=== PATIENT | female | born 1965 | race African-American/Black ===

== ENCOUNTER 2017-02-12 17:30 | Emergency (ER) | payer SELFPAY ==
[2017-02-12] MEDS ORDERED: Acetaminophen 500 MG TAB ONE (18:32)
[2017-02-12] MEDS ORDERED: Ibuprofen 800 MG TAB ONE (19:42)
== END 2017-02-12 19:45 | disposition home or self-care (01) ==
LOC: ERS 17:30
DX: J11.1 Influenza due to unidentified influenza virus with other respiratory manifestations (principal); I10 Essential (primary) hypertension; K21.9 Gastro-esophageal reflux disease without esophagitis; D64.9 Anemia, unspecified; F41.9 Anxiety disorder, unspecified; F31.9 Bipolar disorder, unspecified; F20.9 Schizophrenia, unspecified; Z79.82 Long term (current) use of aspirin; Z79.899 Other long term (current) drug therapy
CPT/HCPCS: 99283

== ENCOUNTER 2017-02-19 09:12 | Emergency (ER) | payer SELFPAY ==
[2017-02-19 10:33] LABS: Bilirubin Negative (Negative); Blood, Urine Large (Negative); Clarity TURBID (Clear); Glucose, Urine (Dipstick) Negative (Negative); Leukocyte Large (Negative); Nitrite Negative (Negative); Protein, Urine (Dipstick) 300 mg/dL (Neg-Trace); Urobilinogen 0.2 mg/dL (0.2-1.0)
[2017-02-19 10:34] LABS: Bacteria/HPF 2+ HPF (None Seen); Hyaline Casts/LPF 4-6 HYALINE CAST LPF (0-3 Hyaline); Pathc Cast-AUWi Flag 0.82 (0-2.49)
[2017-02-19 11:03] LABS: Yeast-AUWi Flag 283.4 (0-25.0)
[2017-02-19 11:04] LABS: Yeast-All Forms None Seen HPF (None Seen)
== END 2017-02-19 11:13 | disposition home or self-care (01) ==
LOC: ERS 09:12
DX: N39.0 Urinary tract infection, site not specified (principal); K21.9 Gastro-esophageal reflux disease without esophagitis; D64.9 Anemia, unspecified; I10 Essential (primary) hypertension; F32.9 Major depressive disorder, single episode, unspecified; F41.9 Anxiety disorder, unspecified; Z79.899 Other long term (current) drug therapy; Z79.82 Long term (current) use of aspirin
CPT/HCPCS: 81003; 81015; 99283

== ENCOUNTER 2017-08-16 13:42 | Observation (INO) | payer SELFPAY ==
--- NOTE | 2017-08-16 14:03 | RAD ---
CHEST ONE VIEW: History: Dyspnea. Chest pain. Comparison: 10-07-16 FINDINGS: Cardiac silhouette magnified and upper limits of normal. Pulmonary vasculature also upper limits of n ormal. Mediastinum is midline. No lobar consolidation or evidence of pneumothorax. classroom monitor le ads overlie the chest. IMPRESSION: No active cardiopulmonary abnormalities are demonstrated. POS: H
[2017-08-16 14:15] LABS: #Eosinphils 0.2 thou/uL (0.0-0.7); #Lymphocytes 1.7 thou/uL (1.20-3.40); #Monocytes 0.3 thou/uL (0.11-0.59); #Neutrophils 4.2 thou/uL (1.40-6.50); %Basophils 0.4 % (0.0-1.0); %Eosinophils 2.4 % (0.0-10.0); %Lymphocytes 27.1 % (21.0-51.0); %Monocytes 4.4 % (0.0-10.0); %Neutrophils 65.7 % (42.0-75.0); Hemoglobin 6.8 g/dL (12.0-16.0); Mean Corpuscular HGB CONC 27.2 g/dL (32.0-36.0); Mean Corpuscular Hemoglobin 17.4 pg (27.0-31.0); Mean Corpuscular Volume 64.2 fL (78.0-98.0); Mean Platelet Volume 11.2 fL (7.4-10.4); Platelet Count 425 thou/uL (130-400); Red Blood Cell (RBC) Count 3.87 mill/uL (4.20-5.40); White Blood Cell (WBC) Count 6.4 thou/uL (4.8-10.8)
[2017-08-16 14:32] LABS: Anisocytosis SLIGHT = 6-15 cells (100X) (0-5/hpf); Hypochromia SLIGHT = 6-15 cells (100X) (0-5/hpf); Large Platelets SLIGHT; MDiff Complete? YES; Microcytosis SLIGHT = 6-15 cells (100X) (0-5/hpf); Ovalocytes SLIGHT = 2-5 cells (100X) (0-1/hpf); PLT Morphology Comment Appears Increased; Poikilocytosis SLIGHT = 6-15 cells (100X) (0-5/hpf); Polychromasia SLIGHT = 2-3 cells (100X) (0-2/hpf); Schistocytes SLIGHT = 2-5 cells (100X) (0-1/hpf); Target Cells SLIGHT = 2-5 cells (100X) (0-1/hpf); Tear Drops SLIGHT = 2-5 cells (100X) (0-1/hpf)
[2017-08-16 14:33] LABS: ALT (SGPT) Less than 7 U/L (8-55); AST (SGOT) 11 U/L (5-34); Albumin 3.8 g/dL (3.5-5.0); Alkaline Phosphatase 63 U/L (40-150); Anion Gap 8 mmol/L (10-20); BUN (Urea Nitrogen) 8 mg/dL (9.8-20.1); Bilirubin, Total 0.3 mg/dL (0.2-1.2); Calc. Creatinine Clearance 0 mL/min (70-130); Carbon Dioxide 27 mmol/L (22-29); Chloride 106 mmol/L (98-107); Estimated GFR-MDRD Greater than 90; Globulin 3.3 g/dL (2.4-3.5); Glucose 112 mg/dL (70-105); Potassium 3.5 mmol/L (3.5-5.1); Protein, Total 7.1 g/dL (6.0-8.3); Sodium 137 mmol/L (136-145)
[2017-08-16 14:38] LABS: CKMB 2.6 ng/mL (0-6.6); Troponin I Less than 0.010 ng/mL (< 0.028)
[2017-08-16 14:40] LABS: CK (CPK) 199 U/L (29-168); Lipase 76 U/L (8-78)
[2017-08-16] MEDS ORDERED: diphenhydrAMINE 50 MG/ML VIAL ONE (14:44)
[2017-08-16] MEDS ORDERED: Metoclopramide HCl 10 MG/2 ML VIAL ONE (14:44)
--- NOTE | 2017-08-16 15:54 | ULT ---
PELVIC SONOGRAM TRANSABDOMINAL IMAGING WITH DUPLEX EVALUATION: HISTORY: Vaginal bleeding. Pelvic pain. FINDINGS: Urinary bladder is incompletely distended. Uterus has a homogeneous echotexture and is 11.2 cm. End ometrium is 0.7 cm and contains a tiny nonspecific echogenic focus. No free fluid within the pelvis. The right ovary is 3.4 cm and the left 3.1 cm. Each has a normal s onographic appearance and demonstrates good color and spectral Doppler flow. IMPRESSION: Normal pelvic sonogram. POS: [facility]
[2017-08-16 17:07] LABS: Bilirubin Negative (Negative); Blood, Urine Large (Negative); Clarity CLOUDY (Clear); Glucose, Urine (Dipstick) Negative (Negative); Leukocyte Large (Negative); Nitrite Negative (Negative); Protein, Urine (Dipstick) 100 mg/dL (Neg-Trace); Specific Gravity, Urine 1.008 (1.002-1.036); Urobilinogen 0.2 mg/dL (0.2-1.0); pH, Urine 6.5 (5.0-9.0)
[2017-08-16 17:09] LABS: Bacteria/HPF None Seen HPF (None Seen); Pathc Cast-AUWi Flag 5.39 (0-2.49); Yeast-AUWi Flag 1485.2 (0-25.0)
[2017-08-16 17:37] LABS: Hyaline Casts/LPF NONE SEEN LPF (0-3 Hyaline); Other Casts/LPF None Seen LPF (0-3 Hyaline)
[2017-08-16 17:38] LABS: RBC/HPF GREATER THAN 50-TNTC HPF (0-3); Yeast-All Forms None Seen HPF (None Seen)
[2017-08-16 17:41] VITALS: BMI 45.2
[2017-08-16 17:48] LABS: Troponin I Less than 0.010 ng/mL (< 0.028)
[2017-08-16] MEDS ORDERED: Ondansetron HCl/PF 4 MG/2 ML Vial IVP PRN ×2 (18:15→18:58)
[2017-08-16] MEDS ORDERED: Sodium Chloride 0.9% 1,000 ML IV SCH (18:15)
[2017-08-16] MEDS ORDERED: Ondansetron ODT 4 MG TAB SL PRN (18:15)
[2017-08-16] MEDS ORDERED: Ondansetron ODT 8 MG TAB PO PRN (18:57)
[2017-08-16] MEDS ORDERED: cloNIDine 0.1 MG TAB PO PRN (18:57)
[2017-08-16] MEDS ORDERED: Acetaminophen/Codeine 30-300mg Tablet PO PRN (18:59)
[2017-08-16] MEDS: Acetaminophen 325 MG TAB PO PRN (19:48)
[2017-08-16 20:51] LABS: Troponin I 0.013 ng/mL (< 0.028)
[2017-08-16] MEDS: cloNIDine 0.1 MG TAB PO SCH (21:04)
[2017-08-16] MEDS: Simvastatin 20 MG TAB PO SCH (21:05)
[2017-08-16] MEDS: Cipro 250 MG TAB PO SCH (21:05)
[2017-08-16] MEDS: Metoprolol Tartrate 25 MG TAB PO SCH (21:06)
[2017-08-17] MEDS: Acetaminophen 325 MG TAB PO PRN ×5 (00:40→21:16)
--- NOTE | 2017-08-17 03:13 | HP ---
DATE OF INITIAL OBSERVATION: 08/16/2017 CHIEF COMPLAINT OF OBSERVATION: Headache and weakness with occasional chest pain/symptomatic anemia. HISTORY OF PRESENT ILLNESS: The patient is a 51-year-old female who 2 years ago came to the emergenc y room for the very same complaints of weakness and tiredness with occasional chest pain and she was admitted to the hospital for complete acute coronary syndrome workup including stress test, all of wh ich returned unremarkable. She also had a gynecology workup with Dr. Jeet Hunter for the menorrhag ia that she has had for many years. Endometrial biopsy returned no malignancy and she was supposed t o follow up as an outpatient for possible D and C, but due to insurance issues, she never did. She a lso had a complete GI workup with upper endoscopy including EGD, lower endoscopy including colonoscop y, and no disease process was found. Since that time, she has continued to have excessive menstruati on. She has been requested to take iron tablets, but has not done so, preferring to take just her me toprolol. She had seen Dr. Mota's nurse practitioner, Sis Calle over a year ago and has not come back for followup to control her blood pressure, so when she arrived at the ER, it is 161/86. She also has not been taking her simvastatin or daily aspirin. The patient's complaints initially we re weakness and tingling in her arms. The day prior to coming to the emergency room, she had an epis ode of chest pain that was squeezing in nature in substernal. There was no actual chest pain when sh e came into the emergency room, but this was listed in her history and because her hemoglobin had com e down to 6.8 and, hematocrit 24.8. It was thought that this might be symptomatic angina despite the negative cardiac workup 2 years earlier, so Dr. Ramirez was called to put the patient into the [facility] for further evaluation of the nature of her chest pain. Cardiac enzymes thus far have been negat fadumo. She does have very significant urinary tract infection and this will be treated accordingly. PAST MEDICAL HISTORY: Significant for the previous mentioned metromenorrhagia, this has been going o n for many years; hyperlipidemia; hypertension; paroxysmal supraventricular tachycardia; iron deficie ncy anemia secondary to the metromenorrhagia; extreme obesity; tobacco abuse; gastroesophageal reflux disease. PRIOR SURGICAL HISTORY: Includes the aforementioned procedures of EGD and colonoscopy done in 2016. Endometrial biopsy done during that year, she has had a cyst removed from her left breast. PSYCHOLOGICAL HISTORY: Includes anxiety and depression. SOCIAL HISTORY: She denies alcohol use. She is a previous smoker. Lives at home. ALLERGIES: Possibly to IODINE and MORPHINE. CURRENT MEDICATIONS: She is supposed to be taking metoprolol 12.5 mg b.i.d., 81 mg aspirin, simvasta tin 20 mg daily, and Feosol iron supplementation. REVIEW OF SYSTEMS: At the time of admission, it is negative for fever or chills. Eyes: Denies eye pain or blurred vision or visual changes. ENT: Denies rhinorrhea, sore throat, pain in her ears, ri nging in her ears. Respiratory: She reports some shortness of breath, but denies coughing, wheezing , or sneezing. Cardiovascular: Reports some squeezing in her chest, occasionally with exertion. De nies palpitations. Genitourinary: No pain on urination, no frequency, or blood in urine or stool. Gastrointestinal: Denies nausea, vomiting, diarrhea, or abdominal pain. Skin: No new rashes or les ions. Neurologic: Denies confusion, dizziness, but does have headaches. Hemolytic Lymph: There is no new swelling or blood clotting. Allergic/Immunologic: Denies any sneezing, itchy watery eyes. PHYSICAL EXAMINATION: At the time of admission: VITAL SIGNS: Blood pressure 161/86, pulse 71, respirations 18, temperature 98.3, O2 sat 97% on room air. Later in the emergency room, her blood pressure shot up to 180/96. GENERAL: This is a morbidly obese black female, alert, oriented, and cooperative. HEENT: Normocephalic and atraumatic. Pupils equal, round, and reactive to light. Extraocular muscl es are intact. TMs, nares, pharynx are clear. NECK: Supple, trachea midline. No mass noted. CHEST: Breath sounds clear on both sides. BREAST: Deferred. HEART: Regular rate and rhythm. No murmur. ABDOMEN: Soft, nontender, without organomegaly. GENITOURINARY: Deferred. EXTREMITIES: Without clubbing, cyanosis, or significant edema. Normal range of motion present in up per and lower extremities with 2+ pulses in her radial and dorsalis pedis bilaterally. SKIN: Without acute rashes or lesions. NEUROLOGIC: Cranial nerves are intact. Gait and cerebellar function are not tested. Sensory exam i s grossly intact. Mental status is baseline without obvious hallucinations, delusions. Thoughts are coherent, logical, and goal directed without pressured speech. LABORATORY DATA: The lab work on admission shows WBC at 6.4, hemoglobin 6.8, hematocrit 24.[address] atelets at 425,000. Her sodium is 137, potassium 3.5, chloride 106, CO2 of 27, BUN 8, creatinine 0.7 2, glucose 112, ALT less than 7. CK is 199. Troponins are negative x2. BNP 82. Lipase 76. Urinal ysis shows too numerous to count wbc's with large leukocyte esterase, nitrites negative. ASSESSMENT: 1. Symptomatic anemia. 2. Possible angina. We will look for cardiac and packed. 3. Urinary tract infection. 4. Medical noncompliance. 5. Hypertension. 6. Dyslipidemia. 7. History of tobacco abuse. PLAN: Plan will be to complete the serial cardiac enzymes, consult Cardiology. Repeat echocardiogra m last done in 2014 and do a nuclear Med stress test to clarify whether any further intervention will be necessary from a cardiac standpoint. In the meantime, pain management for her headaches and bloo d pressure control will be performed.
[2017-08-17 04:36] LABS: #Eosinphils 0.3 thou/uL (0.0-0.7); #Lymphocytes 2.4 thou/uL (1.20-3.40); #Monocytes 0.4 thou/uL (0.11-0.59); #Neutrophils 4.5 thou/uL (1.40-6.50); %Basophils 0.4 % (0.0-1.0); %Eosinophils 3.6 % (0.0-10.0); %Lymphocytes 30.8 % (21.0-51.0); %Monocytes 5.8 % (0.0-10.0); %Neutrophils 59.3 % (42.0-75.0); Hemoglobin 7.1 g/dL (12.0-16.0); Mean Corpuscular Volume 67.7 fL (78.0-98.0); Mean Platelet Volume 10.3 fL (7.4-10.4); Platelet Count 370 thou/uL (130-400); RBC Distribution Width 19.9 % (11.5-14.5); Red Blood Cell (RBC) Count 3.76 mill/uL (4.20-5.40); White Blood Cell (WBC) Count 7.6 thou/uL (4.8-10.8)
[2017-08-17 04:54] LABS: Cardiac Risk 3.2 (Less than 4.5)
[2017-08-17] MEDS: Cipro 250 MG TAB PO SCH ×2 (05:49→21:15)
--- NOTE | 2017-08-17 07:33 | PRG ---
DATE OF SERVICE: 08/16/2017 SUBJECTIVE: The patient rested well overnight, headache is gone, blood pressure is better. She stat es she can definitely feel a little improved since her 1 unit of blood. She arouses easily, is alert , in no acute distress. OBJECTIVE: VITAL SIGNS: Blood pressure is 132/64. She is afebrile. Pulse at 60. LABORATORY: The WBCs are 7.6, hemoglobin 7.1, hematocrit 25.4 with platelets at 370. The sodium is 135, potassium 3.5, chloride 106, CO2 27, BUN 8, creatinine 0.72, and glucose of 112. Her cardiac en zymes had all returned negative. Her total cholesterol is 123, triglycerides 66, LDL 72 and HDL is 3 8 with heart disease risk ratio of 3.2. Echocardiogram is pending as the initiation of her nuclear med stress test. HEENT: Pupils are equal, round, and reactive to light. Conjunctival clear. Pharynx clear. NECK: Supple. CHEST: Clear to auscultation. HEART: Regular rate and rhythm, no murmur. ABDOMEN: Soft, nontender. SKIN: Good turgor. No rashes. NEUROLOGIC: Alert, nonfocal and intact. ASSESSMENT: 1. Chest pain, currently resolved. 2. Symptomatic anemia, improved. 3. Urinary tract infection. 4. Hypertension, improved on increased medication. Tolerating well the clonidine and increased dose of metoprolol. PLAN: The plan is to repeat echocardiogram since the last has been in 2014. Cardiology consultation . We will go ahead and get a nuclear med stress test and any other tests the college basketball coach deems nece ssary. Should this prove negative for ischemia, remainder of workup will be on an outpatient basis. If there are positive signs for ischemia than the college basketball coach is asked to intervene and perform wha tever further test they deem necessary.
[2017-08-17] MEDS ORDERED: Tetrahydrozoline 0.05% OPTH 15 ML BOT EA EYE PRN (08:29)
[2017-08-17] MEDS: cloNIDine 0.1 MG TAB PO SCH ×2 (11:49→21:15)
[2017-08-17] MEDS: Aspirin 81 mg Enteric Coated Tablet PO SCH (11:49)
[2017-08-17] MEDS: Metoprolol Tartrate 25 MG TAB PO SCH ×2 (11:49→21:16)
--- NOTE | 2017-08-17 15:17 | NM ---
RADIONUCLIDE STRESS ONLY MYOCARDIAL PERFUSION SCAN WITH CT ATTENUATION CORRECTION AND SPECT IMAGING LEFT VENTRICULAR WALL MOTION EVALUATION AND EJECTION FRACTION: History Chest pain. FINDINGS: Adenosine protocol was used. There is homogeneous uptake of radiotracer throughout the left ventricu lar myocardium. No focal perfusion defect. QGS analysis of gated SPECT images show global hypokinesis without focal abnormality. Ejection fract ion is calculated at 53%. IMPRESSION: Normal stress-only myocardial perfusion scan showing no evidence of ischemia. Borderline left ventri cular ejection fraction of 53% without focal wall motion abnormality. POS: [facility]
[2017-08-17] MEDS: Simvastatin 20 MG TAB PO SCH (21:16)
[2017-08-18] MEDS: Acetaminophen 325 MG TAB PO PRN ×2 (04:48→08:57)
[2017-08-18] MEDS: Cipro 250 MG TAB PO SCH (04:49)
[2017-08-18] MEDS: Aspirin 81 mg Enteric Coated Tablet PO SCH (08:52)
[2017-08-18] MEDS: cloNIDine 0.1 MG TAB PO SCH (08:52)
[2017-08-18] MEDS: Metoprolol Tartrate 25 MG TAB PO SCH (08:52)
[2017-08-18 12:02] VITALS: BP 163/72; TEMP 98.9
--- NOTE | 2017-08-18 18:02 | DIS ---
DATE OF INITIATION OF OBSERVATION: 08/16/2017 DATE OF DISCHARGE FROM OBSERVATION: 08/18/2017 CHIEF COMPLAINT ON ADMISSION: Chest pain. History and physical have been dictated. I will resume from there. HOSPITAL COURSE: The patient was placed on telemetry bed where every heart beat was monitored. It was noted on her urinalysis that she had a urinary tract infection. Cipro was begun at 250 b.i.d. for that. She had an echocardiogram done, the results showed that she had an ejection fraction of 55% -60%, left atrium was mildly dilated. The left ventricle function was normal aortic valve was a little sclerotic and there is trace tricuspid regurgitation. During this time, she was given aspirin daily. Serial cardiac enzymes returned negative and a nuclear medicine stress test was performed. This returned on 08/17/2017 with normal stress. Only myocardial perfusion scan showing no evidence of ischemia. The borderline left ventricular ejection fraction 53% without focal wall motion abnormality. Dr. Burnett read the echocardiogram and nuclear stress test and felt it was unnecessary for him to do a formal consultation due to these normal chest findings consistent with what was performed 2 years earlier. In the meantime, her blood pressure has come under much better control with increased metoprolol tartrate and clonidine 0.1 b.i.d. Headache is resolved. On the day of discharge 08/18/2017, she is stable. No complaints. Her diagnosis at the time of discharge: 1. Chest pain. Etiology probably due to gastroesophageal reflux. 2. Hypertension, poorly controlled, but the addition of the clonidine 0.1 b.i.d. helped control her blood pressure and of course her headache relieved. 3. UTI 4. Headache 5. GERD She had some dry itchy eyes during hospitalization and Natural Tears were used to alleviate that complaint, so with normal chest findings and her issues of discomfort addressed, she is ready for discharge. Her medications at the time of discharge are Cipro 250 b.i.d. #10, metoprolol tartrate 50 b.i.d. #60 with 5 refills, and clonidine 0.1 mg 1 p.o. b.i.d., #60, also, with 5 refills. She is to follow up with Dr. Mota in 1-2 weeks to assess efficacy and she also will be sent home with Protonix 40 mg once a day for the gastroesophageal reflux that is thought to be the source of her chest pain. The time required to review the chart and prepared the chart for discharge, examined the patient and answered all the patient's questions and then dictation came to 30 minutes. In addition, we reconciled all her medications. GRETTA
--- NOTE | 2017-08-19 11:32 | STRESS ---
Acquisition Time: 2017-08-17 09:23:49 Total Exercise Time: 00:04:00 Test Indications: CHEST PAIN Medications: Protocol: ADENOSINE Max HR: 088 BPM 52% of Pred: 169 BPM Max BP: 114/064 mmHG Max Work Load: 1.0 METS RESTING ECG: SINUS BRADYCARDIA AT 54 BPM WITH POOR R-WAVE PROGRESSION SYMTPOMS: SHORTNESS OF BREATH NORMAL BP RESPONSE ECTOPY: NONE ECG STRESS: NO SIGNIFICANT CHANGES INTERPRETATION: AWAIT NUCLEAR IMAGES FOR DEFINITIVE DIAGNOSIS Confirmed by RITA SHEPPARD ([id number]), news assignment editor ARNOLDO VAUGHN ([id number]) on 08/19/2017 11:32:04 AM Referred By: MD Fili HOPSON Confirmed By:RITA SHEPPARD
== END 2017-08-18 12:26 | disposition home or self-care (01) ==
LOC: ERS 13:42 → INTOOBSV 15:30 → ERHOLD 15:30 → IMCU/EMU 17:24 → 2SW 19:59
PROVIDERS: ADMIT Specialist; ATTEND Specialist
DX: R07.2 Precordial pain (principal); N92.1 Excessive and frequent menstruation with irregular cycle; D50.9 Iron deficiency anemia, unspecified; N39.0 Urinary tract infection, site not specified; E78.5 Hyperlipidemia, unspecified; I10 Essential (primary) hypertension; I47.1 Supraventricular tachycardia; K21.9 Gastro-esophageal reflux disease without esophagitis; F41.8 Other specified anxiety disorders; E66.8 Other obesity; Z68.42 Body mass index [BMI] 45.0-49.9, adult; Z87.891 Personal history of nicotine dependence; Z91.14 Patient's other noncompliance with medication regimen; Z88.5 Allergy status to narcotic agent; Z88.8 Allergy status to other drugs, medicaments and biological substances; Z79.82 Long term (current) use of aspirin; Z79.899 Other long term (current) drug therapy
CPT/HCPCS: 36415; 36430; 71045; 76856; 78452; 80053; 80061; 81003; 81015; 82553; 83690; 83880; 84484; 85025; 86677; 86850; 86900; 86901; 87086; 93005; 93017; 93306; 96361; 96374; 96375; A4216; A9500; G0378; J0153; J1200; J2765; P9016

== ENCOUNTER 2017-09-07 10:24 | Emergency (ER) | payer SELFPAY ==
[2017-09-07 11:04] LABS: #Eosinphils 0.1 thou/uL (0.0-0.7); #Lymphocytes 1.9 thou/uL (1.20-3.40); #Monocytes 0.5 thou/uL (0.11-0.59); #Neutrophils 5.1 thou/uL (1.40-6.50); %Basophils 0.1 % (0.0-1.0); %Lymphocytes 24.4 % (21.0-51.0); %Monocytes 6.4 % (0.0-10.0); %Neutrophils 67.1 % (42.0-75.0); Hemoglobin 8.3 g/dL (12.0-16.0); Mean Corpuscular Hemoglobin 18.6 pg (27.0-31.0); Mean Corpuscular Volume 66.2 fL (78.0-98.0); Mean Platelet Volume 7.6 fL (7.4-10.4); Platelet Count 284 thou/uL (130-400); RBC Distribution Width 20.6 % (11.5-14.5); Red Blood Cell (RBC) Count 4.46 mill/uL (4.20-5.40); White Blood Cell (WBC) Count 7.6 thou/uL (4.8-10.8)
[2017-09-07 11:11] LABS: Bilirubin Negative (Negative); Blood, Urine Negative (Negative); Glucose, Urine (Dipstick) Negative (Negative); Leukocyte Negative (Negative); Nitrite Negative (Negative); Protein, Urine (Dipstick) Negative (Neg-Trace); Urobilinogen 0.2 mg/dL (0.2-1.0)
[2017-09-07 11:18] LABS: Clarity CLEAR (Clear)
[2017-09-07 11:22] LABS: Elliptocytes SLIGHT = 2-5 cells (100X) (0-1/hpf); Hypochromia MODERATE=16-30 cells (100X) (0-5/hpf); MDiff Complete? YES; Microcytosis MARKED = >30 cells (100X) (0-5/hpf); PLT Morphology Comment Appears Adequate; Polychromasia SLIGHT = 2-3 cells (100X) (0-2/hpf); Schistocytes SLIGHT = 2-5 cells (100X) (0-1/hpf)
[2017-09-07 11:35] LABS: ALT (SGPT) Less than 7 U/L (8-55); AST (SGOT) 9 U/L (5-34); Alkaline Phosphatase 60 U/L (40-150); Anion Gap 13 mmol/L (10-20); BUN (Urea Nitrogen) 7 mg/dL (9.8-20.1); Bilirubin, Total 0.3 mg/dL (0.2-1.2); Calc. Creatinine Clearance 0 mL/min (70-130); Calcium 9.1 mg/dL (7.8-10.44); Carbon Dioxide 22 mmol/L (22-29); Chloride 109 mmol/L (98-107); Estimated GFR-MDRD Greater than 90; Globulin 3.1 g/dL (2.4-3.5); Glucose 103 mg/dL (70-105); Potassium 3.5 mmol/L (3.5-5.1); Protein, Total 7.1 g/dL (6.0-8.3); Sodium 140 mmol/L (136-145)
== END 2017-09-07 12:20 | disposition home or self-care (01) ==
LOC: ERS 10:24
DX: R30.0 Dysuria (principal); I10 Essential (primary) hypertension; D64.9 Anemia, unspecified; K21.9 Gastro-esophageal reflux disease without esophagitis; Z79.82 Long term (current) use of aspirin; Z79.899 Other long term (current) drug therapy
CPT/HCPCS: 36415; 80053; 81003; 85025; 99283

== ENCOUNTER 2017-09-26 22:14 | Observation (INO) | payer SELFPAY ==
[2017-09-26] MEDS ORDERED: Ondansetron ODT 8 MG TAB ONE (23:00)
[2017-09-26] MEDS ORDERED: Ketorolac Tromethamine 60 MG/2 ML VIAL ONE (23:00)
[2017-09-26 23:20] LABS: #Eosinphils 0.1 thou/uL (0.0-0.7); #Lymphocytes 1.8 thou/uL (1.20-3.40); #Monocytes 0.6 thou/uL (0.11-0.59); #Neutrophils 7.5 thou/uL (1.40-6.50); %Basophils 0.4 % (0.0-1.0); %Eosinophils 1.3 % (0.0-10.0); %Lymphocytes 17.6 % (21.0-51.0); %Monocytes 5.7 % (0.0-10.0); Hemoglobin 7.3 g/dL (12.0-16.0); Mean Corpuscular HGB CONC 28.3 g/dL (32.0-36.0); Mean Corpuscular Hemoglobin 18.8 pg (27.0-31.0); Mean Corpuscular Volume 66.4 fL (78.0-98.0); Platelet Count 377 thou/uL (130-400); RBC Distribution Width 19.1 % (11.5-14.5)
[2017-09-26 23:36] LABS: Carbon Dioxide 25 mmol/L (22-29); Chloride 103 mmol/L (98-107); Potassium 3.9 mmol/L (3.5-5.1); Sodium 137 mmol/L (136-145)
[2017-09-26 23:37] LABS: ALT (SGPT) 27 U/L (8-55); AST (SGOT) 68 U/L (5-34); Albumin 3.7 g/dL (3.5-5.0); Alkaline Phosphatase 111 U/L (40-150); Anion Gap 13 mmol/L (10-20); BUN (Urea Nitrogen) 9 mg/dL (9.8-20.1); Bilirubin, Total 0.5 mg/dL (0.2-1.2); Calc. Creatinine Clearance 0 mL/min (70-130); Calcium 9.4 mg/dL (7.8-10.44); Estimated GFR-MDRD 89; Globulin 3.2 g/dL (2.4-3.5); Glucose 106 mg/dL (70-105); Lipase 93 U/L (8-78); Protein, Total 6.9 g/dL (6.0-8.3)
[2017-09-27 00:02] LABS: Bilirubin Negative (Negative); Blood, Urine Negative (Negative); Clarity CLEAR (Clear); Glucose, Urine (Dipstick) Negative (Negative); Leukocyte Negative (Negative); Nitrite Negative (Negative); Protein, Urine (Dipstick) 30 mg/dL (Neg-Trace); Specific Gravity, Urine 1.026 (1.002-1.036)
[2017-09-27 00:04] LABS: Bacteria/HPF None Seen HPF (None Seen); Hyaline Casts/LPF 0-3 HYALINE CAST LPF (0-3 Hyaline); Pathc Cast-AUWi Flag 0.29 (0-2.49); Squamous Epithelial 0-3 HPF (0-3); WBC/HPF 0-3 HPF (0-3)
[2017-09-27 00:05] LABS: RBC/HPF 0-3 HPF (0-3)
[2017-09-27 02:40] LABS: INR-International Normal Ratio 1.1; Prothrombin Time 13.8 SEC (12.0-14.7)
[2017-09-27 03:28] VITALS: BMI 47.5
[2017-09-27] MEDS ORDERED: Morphine 4 MG/ML VIAL SLOW IVP PRN (03:28)
[2017-09-27] MEDS ORDERED: Ondansetron HCl/PF 4 MG/2 ML Vial IVP PRN ×2 (03:29→12:55)
[2017-09-27] MEDS: Sodium Chloride 0.9% 1,000 ML IV SCH ×2 (03:51→10:25)
[2017-09-27] MEDS ORDERED: Ketorolac Tromethamine 30 MG/ML VIAL IVP SCH (06:00)
[2017-09-27] MEDS: Acetaminophen 1,000 MG in Premix Bag 1 BAG IVPB SCH ×2 (06:29→12:07)
--- NOTE | 2017-09-27 08:01 | ULT ---
PRELIMINARY REPORT/[facility]/EMERGENTY AFTER-HOURS PROCEDURE US Abdomen Limited, Right Upper Quadrant CLINICAL HISTORY: 51 years old, female; Pain and signs and symptoms; Nausea and vomiting; Abdominal pain; Localized; Ot her: Ruq to rt flank pain; Patient HX: Abd pain x 2 weeks; Additional info: Dx: Uti x 2 weeks ago TECHNIQUE: Real-time ultrasound of the right upper quadrant with image documentation. COMPARISON: No relevant prior studies available. FINDINGS: Liver: Heterogeneous echogenicity. Mild hepatomegaly No mass. Mild intrahepatic ductal dilatation No perihepatic or abdominal ascites Gallbladder: 2 large gallstones measuring up to 2.4 cm. Positive sonographic Cyr sign. Common bile duct: Dilated measuring 1.1 cm. Pancreas: The pancreas is not well seen due to overlying abdominal bowel gas. Right kidney: Unremarkable. No stones. No solid mass. No hydronephrosis. IMPRESSION: Dilated intra-and extrahepatic biliary ducts. Choledocholithiasis cannot be ruled out. Cholelithiasis with sonographic findings concerning for acute cholecystitis. Mild hepatomegaly likely with fatty infiltration Thank you for allowing us to participate in the care of your patient. Dictated and Authenticated by: Pa Delgado MD 09/27/2017 12:50 AM Central Time ([place] & [place]) SONOGRAM RIGHT UPPER QUADRANT: 09/27/2017 0006 HOURS HISTORY: Right upper quadrant pain. Exam performed on an emergency basis. FINDINGS: Cholelithiasis with positive sonographic Cyr sign. Dilated common duct up to 1.1 cm. Findings ar e highly suspicious for acute biliary obstruction and acute cholecystitis. Findings agree with the preliminary report by Dr. Delgado. POS: [facility]
--- NOTE | 2017-09-27 08:22 | RAD ---
PORTABLE CHEST: HISTORY: Preop. COMPARISON: 08/16/2017 FINDINGS: Heart size is enlarged. There is some mild vascular prominence, but no signs of overt edema or focal infiltrates. IMPRESSION: Cardiomegaly. POS: [facility]
[2017-09-27] MEDS ORDERED: Metoprolol Tartrate 50 MG TAB PO SCH (09:00)
--- NOTE | 2017-09-27 10:22 | HP ---
CHIEF COMPLAINT: Upper abdominal pain. HISTORY OF PRESENT ILLNESS: This is a 51-year-old female with a history of recent admission for ches t pain. She was found to have a negative cardiac workup. She now presents with recurrent severe upp er abdominal pain radiates around to her right back, associated with nausea, no vomiting. She denies previous known history of gallstones, jaundice, or pancreatitis. Previous complete GI workup and gy necologic workup for chronic anemia. She was started on some hormonal treatment by Dr. Hunter, but s he has not been taken that. PAST MEDICAL HISTORY: Heavy menses, hyperlipidemia, hypertension, iron deficiency anemia, GERD. PAST SURGICAL HISTORY: EGD negative, colonoscopy negative, endometrial biopsy negative. SOCIAL HISTORY: She is previous smoker. No alcohol, no other drugs. ALLERGIES: IODINE, MORPHINE. MEDICINES: See list. REVIEW OF SYSTEMS: Ten system review of systems otherwise negative unless described above. FAMILY HISTORY: Noncontributory to GI malignancy or anesthetic related complication. PHYSICAL EXAMINATION: VITAL SIGNS: Blood pressure is 108/72, pulse 61, respirations 18, temperature 97.9. HEENT: Sclerae are anicteric. Oropharynx clear. NECK: No lymphadenopathy. CHEST: Clear. HEART: Regular rate and rhythm. ABDOMEN: Soft, tender in the epigastric and right upper quadrant with localized guarding, no rebound , no abdominal hernias. LABORATORY DATA AND IMAGING: White blood cell count is 10, hemoglobin 7.3, platelet count is 377. S odium 137, potassium 3.9, bilirubin 0.5, AST is elevated at 68. Lipase is 93. Ultrasound show there is cholelithiasis, dilated intra and extrahepatic bile duct. ASSESSMENT: Acute cholecystitis with dilated common bile duct, but minimal elevation of liver functi on tests. PLAN: Laparoscopic cholecystectomy with intraoperative cholangiogram. Risks, benefits, alternatives discussed. She gives consent. We will do this today.
[2017-09-27] MEDS ORDERED: Sodium Chloride 0.9% 100 ML ONE (10:54)
[2017-09-27] MEDS ORDERED: cefOXitin 2 GM VIAL ONE (10:54)
[2017-09-27] MEDS ORDERED: Iothalamate Meglumine 60% 50 ML VIAL FS ONE (10:54)
[2017-09-27] MEDS ORDERED: Bupivacaine/Epinephrine 0.25% 30 ML VIAL ONE (10:54)
[2017-09-27] MEDS ORDERED: Fentanyl 100 MCG/2 ML VIAL ONE (11:02)
[2017-09-27] MEDS ORDERED: SUGAMMADEX SODIUM 500 MG/5 ML VIAL ONE (12:09)
--- NOTE | 2017-09-27 12:49 | RAD ---
INTRAOPERATIVE CHOLANGIOGRAM: Date: 09/27/17 CLINICAL HISTORY: Gallbladder disease, abdominal pain, cholecystectomy. FINDINGS: Contrast opacified extrahepatic and partially visualized intrahepatic biliary ductal system does not reveal an obvious, focal filling defect. Radiopaque linear densities are seen, indicative of cholecys tectomy clips. There is contrast opacification of the partially imaged, adjacent small bowel. IMPRESSION: No obvious focal filling defect of the partially imaged contrast opacified biliary ductal system. POS: [facility]
[2017-09-27] MEDS ORDERED: HYDROcodone/Acetaminophen 10/325 mg Tablet PO PRN ×2 (12:55)
[2017-09-27] MEDS ORDERED: Dextrose 5% in Water 1,000 ML IV PRN (12:55)
[2017-09-27] MEDS ORDERED: Promethazine HCl 25 MG/ML VIAL IM PRN (12:55)
[2017-09-27] MEDS ORDERED: Dextrose 50% Abboject 50 ML SYRINGE SLOW IVP PRN (12:55)
[2017-09-27] MEDS ORDERED: Sodium Chloride 0.9% 1,000 ML IV SCH (12:55)
[2017-09-27] MEDS ORDERED: hydrALAZINE 20 MG/ML VIAL SLOW IVP PRN (12:55)
[2017-09-27] MEDS ORDERED: Calcium Carbonate 500 MG ChewTAB PO PRN (12:55)
[2017-09-27] MEDS ORDERED: Fentanyl 100 MCG/2 ML VIAL SLOW IVP PRN (12:55)
[2017-09-27] MEDS ORDERED: Mag-Al 1200 mg/1200 mg/30 ML UDCUP PO PRN (12:55)
--- NOTE | 2017-09-27 13:12 | OP ---
DATE OF PROCEDURE: 09/27/2017 PREOPERATIVE DIAGNOSIS: Acute cholecystitis. POSTOPERATIVE DIAGNOSIS: Acute cholecystitis. PROCEDURE: Laparoscopic cholecystectomy with intraoperative cholangiogram. SURGEON: Dr. Jaron Madrid ANESTHESIA: General. ESTIMATED BLOOD LOSS: Minimal. COMPLICATIONS: None. SPECIMEN: Gallbladder. FINDINGS: Acute cholecystitis. Normal cholangiogram. TECHNIQUE: The patient was taken to the operating room and placed supine on the table. After genera l anesthetic was obtained, the abdomen was prepped and draped in a sterile fashion. Straight incisio n made above the umbilicus. Cautery was used to dissect down to and score the fascia. Abdominal cav ity entered bluntly using a Beatris clamp. Holding stitch of PDS placed on each side of the fascia. H assan trocar was placed, high flow pneumoperitoneum was obtained. Upper midline 5-mm port and 2 righ t upper quadrant 5 mm ports were placed under direct visualization. The gallbladder dissected from t he gallbladder fossa. The peritoneum was opened anteriorly and posteriorly. Critical view triangle was seen showing only the cystic duct and cystic artery branching from medial to lateral no other bra nching structures. ____ Mota placed on the cystic duct. A small ductotomy was made just proximal to that. Cholangiocatheter brought in through a separate stab incision, placed in the cystic duct an d a cholangiogram was performed which shows good contrast flow into the duodenum without obstruction. There is dilated common bile duct, but no evidence of obstruction. Cholangiocatheter was removed. Three clips were placed proximal in cystic duct and the cystic duct cut distal to this using laparos copic scissors. Cystic artery was taken using 2 clips proximal, 1 clip distally, and cut using lapar oscopic scissors. Cautery was used to dissect the gallbladder out of the gallbladder fossa. Gallbla dder was placed in the Endocatch bag and brought out through the Mota. All port sites infiltrated using local anesthetic. There was no bleeding or bile in the liver bed. All port sites were infiltr ated with local anesthetic, all ports are removed under camera visualization. Pneumoperitoneum was le t down. PDS used to close the fascia below the umbilicus, all incision were irrigated and closed us ing 4-0 Monocryl and Dermabond. The patient went to recovery in stable condition. All instrument co unts, needle counts, lap counts were correct.
[2017-09-27] MEDS ORDERED: Glycopyrrolate 0.2 MG/ML 5 ML SYRINGE ONE (15:02)
[2017-09-27] MEDS ORDERED: PROPOFOL 200 MG/20 ML VIAL ONE (15:02)
[2017-09-27] MEDS ORDERED: Ketorolac Tromethamine 30 MG/ML VIAL ONE (15:02)
[2017-09-27] MEDS ORDERED: Ondansetron HCl/PF 4 MG/2 ML Vial ONE (15:02)
[2017-09-27] MEDS ORDERED: Lidocaine 1% PF 5 ML VIAL ONE (15:02)
[2017-09-27 17:36] VITALS: BP 142/83; TEMP 98.3
[2017-09-27] MEDS ORDERED: Famotidine/PF 20 mg/2ml Vial SLOW IVP SCH (21:00)
[2017-09-27] MEDS ORDERED: Famotidine 20 MG TAB PO SCH (21:00)
--- NOTE | 2017-09-28 15:28 | DIS ---
DATE OF ADMISSION: 09/27/2017 DATE OF DISCHARGE: 09/27/2017 ADMISSION DIAGNOSIS: Acute cholecystitis. DISCHARGE DIAGNOSIS: Acute cholecystitis. PROCEDURES: Laparoscopic cholecystectomy by Dr. Madrid without complication. CONDITION AT DISCHARGE: Improved. STAFF: Dr. Jaron Madrid. HOSPITAL COURSE: See hospital chart for details of hospitalization.
== END 2017-09-27 18:31 | disposition home or self-care (01) ==
LOC: ERS 22:14 → SURG A 09-27 03:15
PROVIDERS: ADMIT Surgery; ATTEND Surgery
PROC: 0FT44ZZ Resection of Gallbladder, Percutaneous Endoscopic Approach (ICD-10-PCS; principal; 2017-09-27)
PROC: BF101ZZ Fluoroscopy of Bile Ducts using Low Osmolar Contrast (ICD-10-PCS; 2017-09-27)
DX: K80.12 Calculus of gallbladder with acute and chronic cholecystitis without obstruction (principal); E78.5 Hyperlipidemia, unspecified; I10 Essential (primary) hypertension; D50.9 Iron deficiency anemia, unspecified; K21.9 Gastro-esophageal reflux disease without esophagitis; K83.8 Other specified diseases of biliary tract; Z87.891 Personal history of nicotine dependence; Z79.2 Long term (current) use of antibiotics; Z79.899 Other long term (current) drug therapy; Z88.5 Allergy status to narcotic agent; Z91.041 Radiographic dye allergy status
CPT/HCPCS: 36415; 47532; 71045; 76705; 80053; 81003; 81015; 83690; 85025; 85610; 85730; 88304; 93005; 96372; 96374; 96375; G0378; J0131; J0694; J1885; J2001; J2405; J2704; J3010; J7050; Q9961

== ENCOUNTER 2018-08-18 11:01 | Observation (INO) | payer OTHER, SELFPAY ==
[2018-08-18 11:28] LABS: Bilirubin Negative (Negative); Blood, Urine Negative (Negative); Clarity CLEAR (Clear); Glucose, Urine (Dipstick) Negative (Negative); Leukocyte Negative (Negative); Nitrite Negative (Negative); Protein, Urine (Dipstick) Negative (Neg-Trace)
[2018-08-18 12:28] LABS: ALT (SGPT) 8 U/L (8-55); AST (SGOT) 9 U/L (5-34); Albumin 3.9 g/dL (3.5-5.0); Alkaline Phosphatase 61 U/L (40-150); Anion Gap 12 mmol/L (10-20); BUN (Urea Nitrogen) 7 mg/dL (9.8-20.1); Bilirubin, Total 0.4 mg/dL (0.2-1.2); Calc. Creatinine Clearance 0 mL/min (70-130); Calcium 9.1 mg/dL (7.8-10.44); Carbon Dioxide 25 mmol/L (22-29); Chloride 106 mmol/L (98-107); Estimated GFR-MDRD Greater than 90; Glucose 93 mg/dL (70-105); Lipase 43 U/L (8-78); Potassium 3.6 mmol/L (3.5-5.1); Protein, Total 6.9 g/dL (6.0-8.3); Sodium 139 mmol/L (136-145)
[2018-08-18] MEDS ORDERED: Ketorolac Tromethamine 60 MG/2 ML VIAL ONE (12:41)
[2018-08-18 13:19] LABS: #Lymphocytes 1.3 thou/uL (1.20-3.40); #Monocytes 0.4 thou/uL (0.11-0.59); %Basophils 0.4 % (0.0-1.0); %Eosinophils 0.8 % (0.0-10.0); %Lymphocytes 22.8 % (21.0-51.0); %Monocytes 6.9 % (0.0-10.0); %Neutrophils 69.1 % (42.0-75.0); Anisocytosis SLIGHT = 6-15 cells (100X) (0-5/hpf); Giant Platelets SLIGHT; Hemoglobin 5.8 g/dL (12.0-16.0); Hypochromia MARKED = >30 cells (100X) (0-5/hpf); Large Platelets MODERATE; Lymphocytes 25 % (21-51); MDiff Complete? YES; Mean Corpuscular HGB CONC 26.7 g/dL (32.0-36.0); Mean Corpuscular Hemoglobin 16.8 pg (27.0-31.0); Mean Corpuscular Volume 62.7 fL (78.0-98.0); Mean Platelet Volume 8.6 fL (7.4-10.4); Monocytes 4 % (0-10); Neutrophil 70 % (42-75); Platelet Count 406 thou/uL (130-400); Platelet Morphology Comment Appears Increased; Polychromasia SLIGHT = 2-3 cells (100X) (0-2/hpf); RBC Distribution Width 19.7 % (11.5-14.5); Red Blood Cell (RBC) Count 3.44 mill/uL (4.20-5.40); White Blood Cell (WBC) Count 5.8 thou/uL (4.8-10.8)
--- NOTE | 2018-08-18 14:05 | CT ---
Abdomen CT without contrast Pelvic CT without contrast History right flank pain FINDINGS: Abdomen CT: Lung bases are clear. Heart is enlarged. No significant pericardial fluid Visualized aorta has a normal caliber Limited evaluation of the solid organs lack of IV contrast. Grossly no solid organ abnormality No gastrohepatic, retrocrural or periportal lymphadenopathy Surgically absent gallbladder No mesenteric mass, lymphadenopathy, free air or free fluid Limited evaluation of the alimentary canal by the lack of oral contrast. No evidence of bowel obstruc tion. Ileocecal junction is normal. Suggestion of a normal caliber appendix emanating from the cecal apex. Nondistended colon. Minimal scattered fecal material. Bilaterally no hydronephrosis, nephrolithiasis or perinephric fat stranding. Bilateral ureters have a normal caliber. No hydroureter, periureteral fat stranding or ureterolithiasis Pelvis CT: Unremarkable urinary bladder. Uterus and adnexal structures are markable. No pelvic mass, lymphadenopathy, free air or free fluid There are no osteoblastic or osteolytic lesions. Degenerative changes are noted. IMPRESSION: 1. No evidence of obstructive uropathy. 2. There is no inflammation of the cecal apex. There does appear to be normal caliber appendix.
[2018-08-18 18:00] LABS: Reticulocyte Count 1.8 % (0.5-1.5)
[2018-08-18] MEDS ORDERED: Ondansetron PF 4 MG/2 ML Vial IVP PRN (18:02)
[2018-08-18] MEDS ORDERED: Ondansetron ODT 4 MG TAB SL PRN (18:02)
[2018-08-18] MEDS ORDERED: Ondansetron PF 4 MG/2 ML Vial SLOW IVP PRN (18:03)
[2018-08-18 18:07] LABS: Iron 9 ug/dL (50-170); Iron Binding Capacity, Total 411 mcg/dL (265-497)
[2018-08-18 18:10] LABS: Hemoglobin A1c 4.9 % (4.0-6.0)
[2018-08-18 19:07] VITALS: BMI 48.7
[2018-08-18 19:13] LABS: Folate (Folic Acid) 14.1 ng/mL (7.0-31.4)
--- NOTE | 2018-08-18 22:08 | HP ---
CHIEF COMPLAINT: Right flank pain and severe anemia. HISTORY OF PRESENT ILLNESS: The patient is a 52-year-old female who states that about a week ago, she began to have right flank pain. It went away after a while, but then came back on the day of admission worse bad enough to where she came to the emergency room. In the ER, her tests concerning her pain were negative, but her hemoglobin was 5.8 and her hematocrit was 21.6. She has had this in the past. In fact, had been hospitalized in the past where she would receive transfusions and leave the reason for these low blood count, she has been told it is due to her heavy menses, which she states she had just 2 weeks ago. She denies fever, nausea, vomiting, or diarrhea. She has not seen any blood in her urine or stool and workup concerning her flank pain including CT of the abdomen and pelvis are unremarkable at the time of observation. PAST MEDICAL HISTORY: Significant for hyperlipidemia, hypertension, and iron deficiency anemia, as well as GERD. PAST SURGICAL HISTORY: Includes a negative EGD, negative colonoscopy, endometrial biopsies that were negative and Dr. Madrid did a removal of her gallbladder in September of 2017. SOCIAL HISTORY: She is a previous smoker, but currently does not use alcohol or drugs. ALLERGIES: TO IODINE AND MORPHINE. MEDICATIONS: See list. REVIEW OF SYSTEMS: Ten-system review of systems is negative unless described above. PHYSICAL EXAMINATION: At the time of admission, GENERAL: This is a morbidly obese, female, alert, oriented, cooperative, in no acute distress. HEENT: Normocephalic, atraumatic. Pupils are equal, round, and reactive to light. Extraocular muscles are intact. TMs, nares, and pharynx are clear. NECK: Supple. Trachea midline. CHEST: Clear to auscultation. BREAST: Exam deferred. HEART: Regular rate and rhythm without murmur. BACK: Without CVA tenderness or lesions. ABDOMEN: Obese. Unable to appreciate organomegaly or tenderness. : Deferred. EXTREMITIES: Without clubbing, cyanosis, or edema. Normal range of motion present. Symmetrical muscular tone development noted. SKIN: Without acute rashes or lesions. NEUROLOGIC: Shows cranial nerves intact. Mental status clear. Gait and cerebellar function not tested. Sensory exam is grossly intact. LABORATORY DATA: The lab work obtained thus far shows WBCs 5.8, hemoglobin 5.8, hematocrit 21.6, platelets of 406. She has microcytosis noted with large platelets. The sodium is 139, potassium 3.6, chloride 106, CO2 25, BUN 7, creatinine 0.71 with a GFR of 90, glucose 93. Liver functions normal. Lipase 43. Urinalysis is unremarkable. CT of the abdomen also is unremarkable. Stool guaiac is unremarkable, negative. ASSESSMENT: 1. Recurrent iron deficiency anemia. 2. Right flank pain, etiology undetermined. PLAN: Plan will be to provide serial evaluation, re-evaluation, transfusion and pain management. Job ID: [id number]
[2018-08-18 23:32] LABS: Hemoglobin 6.5 g/dL (12.0-16.0)
[2018-08-18] MEDS: Acetaminophen 325 MG TAB PO PRN (23:36)
[2018-08-19 05:09] LABS: #Eosinphils 0.1 thou/uL (0.0-0.7); #Lymphocytes 1.6 thou/uL (1.20-3.40); #Monocytes 0.5 thou/uL (0.11-0.59); #Neutrophils 3.6 thou/uL (1.40-6.50); %Basophils 0.6 % (0.0-1.0); %Eosinophils 2.2 % (0.0-10.0); %Lymphocytes 27.4 % (21.0-51.0); %Monocytes 8.8 % (0.0-10.0); %Neutrophils 60.9 % (42.0-75.0); Hemoglobin 6.2 g/dL (12.0-16.0); Mean Corpuscular HGB CONC 27.7 g/dL (32.0-36.0); Mean Corpuscular Hemoglobin 18.6 pg (27.0-31.0); Mean Corpuscular Volume 67.1 fL (78.0-98.0); Platelet Count 324 thou/uL (130-400); RBC Distribution Width 21.4 % (11.5-14.5); Red Blood Cell (RBC) Count 3.33 mill/uL (4.20-5.40); White Blood Cell (WBC) Count 5.9 thou/uL (4.8-10.8)
[2018-08-19 05:27] LABS: Cardiac Risk 2.5 (Less than 4.5)
--- NOTE | 2018-08-19 10:20 | PDOC.PN ---
- Subjective Encounter Start Date: 08/19/18 (Room #243, Requesting physician Dr. Demetrius Mota, Consult for NEGATIVE NOTCHER) Encounter Start Time: 09:45 Pt is a 52 y/o female who presented yesterday for right flank pain. Hct was 21.6 on admissions and pt was found to have iron deficiency anema. CT scan on admission revealed no obstructive uropathy or bowel inflammation. She has been transfused with 1 unit of blood, with 2 more units ordered by her admitting physician. Pt has a history of heavy menstrual bleeding with LMP 2 weeks ago with no current vaginal bleeding. She reports using 21 adult diapers per day when on her cycle. She has regular cycles "once per month" and is not currently taking any oral contraceptives. She reports hot flashes and mood changes for the past 1 year. She has a history of iron deficiency anemia secondary to heavy menstrual bleeding. She was admitted in 2014 with iron deficiency anemia and was found to have thickened endometrium, with endometrial biopsy (Dr. Hunter) revealing benign proliferative phase endometrium. She was put on Provera at that time, but discontinued use. ROS: Positive as above. Positive also for vaginal itching, dysuria, and constipation (last BM 2 days ago, which is normal for her), depression (not currently on medication). - Objective MAR Reviewed: Yes Vital Signs & Weight: Vital Signs (12 hours) Temp Pulse Resp BP Pulse Ox 08/19/18 07:57 97.7 F 67 16 175/81 H 100 08/19/18 04:15 98.5 F 58 L 18 161/80 H 100 08/18/18 23:24 99.0 F 65 20 161/77 H 99 Weight Weight 250 lb I&O: 08/18/18 08/19/18 08/20/18 06:59 06:59 06:59 Intake Total 750 Balance 750 Result Diagrams: 08/19/18 04:37 08/18/18 11:41 Radiology Reviewed by me: Yes (radiology report for CT abd/pelvis reviewed) EKG Reviewed by me: No Phys Exam - Physical Examination Constitutional: NAD Dx/Plan (1) Heavy menstrual bleeding Code(s): N92.0 - EXCESSIVE AND FREQUENT MENSTRUATION WITH REGULAR CYCLE Status : Acute Qualifiers: Menorrahagia type: with regular cycle Qualified Code(s): N92.0 - Excessive and frequent menstruation with regular cycle Plan: * transvaginal pelvic ultrasound (ordered 08/19/18 in house) * endometrial biopsy (plan to do morning of 08/19/18) * TSH * PT/PTT * vaginal/pelvic exam to be done prior to endometrial biopsy * Provera 10 mg, BID for 1 month * follow up with [facility] on 09/03 at 2:[address] Oscar Thomas Comment: perimenopausal, also with hot flashes and mood instability (2) Iron (Fe) deficiency anemia Code(s): D50.9 - IRON DEFICIENCY ANEMIA, UNSPECIFIED Status: Chronic Qualifiers: Iron deficiency anemia type: chronic blood loss Qualified Code(s): D50.0 - Iron deficiency anemia secondary to blood loss (chronic) - Plan - continue supplemental iron - blood transfusion per primary physician - gynecology will follow as an outpatient. No further inpatient input.
[2018-08-19] MEDS ORDERED: Milk Of Magnesia 30 ML UDCUP PO SCH (10:45)
[2018-08-19 10:56] LABS: PTT 28.5 SEC (22.9-36.1); Prothrombin Time 13.6 SEC (12.0-14.7)
--- NOTE | 2018-08-19 11:27 | PDOC.EVN ---
Event Note - Event Note Event Note: 08/19/18 Time: 1927-1620 Location: procedure room 3SE Procedure: EMB Patient given informed consent on EMB. Speculum used, cervix prepped with non- iodine solution. EMB x 2 passes done with scant tissue. Sounded to 8-9cm No CX lesions, slighjt vulvar excoriations from scratich. Small nabotian cysts noted at portio of CX. Tissue sent to path (walked down)...orders placed. EBL: none Complications: none
--- NOTE | 2018-08-19 13:16 | ULT ---
Exam: Pelvic ultrasound HISTORY: Anemia. COMPARISON: None TECHNIQUE: Transabdominal and endovaginal imaging of the pelvis. FINDINGS: Limited evaluation due to bowel gas and body habitus. Uterus is identified, measuring 10.4 x 5.5 x 0.5 cm. Mild heterogeneity of the myometrium, without di screte mass. Endometrial diameter is 2.1 cm. Nabothian cyst measuring approximately 1 cm is noted Neither ovary is appreciated. No obvious masses or fluid in the left or right adnexa IMPRESSION: Limited evaluation due to body habitus and bowel gas. There does appear to be a markedly thickened endometrium. Correlate for phase of menstrual cycle. Given patient's history, pelvic MRI or sonohysterogram is recommended.
[2018-08-19] MEDS: medroxyPROGESTERone Acetate 5 MG TAB PO SCH (20:22)
[2018-08-19] MEDS: Acetaminophen 325 MG TAB PO PRN (22:42)
[2018-08-20 00:01] LABS: Hemoglobin 8.5 g/dL (12.0-16.0); Platelet Count 302 thou/uL (130-400)
[2018-08-20 05:18] LABS: #Eosinphils 0.2 thou/uL (0.0-0.7); #Lymphocytes 2.2 thou/uL (1.20-3.40); #Monocytes 0.5 thou/uL (0.11-0.59); #Neutrophils 5.3 thou/uL (1.40-6.50); %Basophils 0.3 % (0.0-1.0); %Eosinophils 1.9 % (0.0-10.0); %Lymphocytes 26.4 % (21.0-51.0); %Monocytes 6.5 % (0.0-10.0); %Neutrophils 64.9 % (42.0-75.0); Hemoglobin 8.2 g/dL (12.0-16.0); Mean Corpuscular HGB CONC 29.2 g/dL (32.0-36.0); Mean Corpuscular Hemoglobin 20.9 pg (27.0-31.0); Mean Corpuscular Volume 71.4 fL (78.0-98.0); Mean Platelet Volume 7.6 fL (7.4-10.4); Platelet Count 333 thou/uL (130-400); RBC Distribution Width 24.6 % (11.5-14.5); Red Blood Cell (RBC) Count 3.91 mill/uL (4.20-5.40); White Blood Cell (WBC) Count 8.2 thou/uL (4.8-10.8)
[2018-08-20 08:16] VITALS: BP 148/67; TEMP 97.9
[2018-08-20] MEDS ORDERED: Fluconazole 100 MG TAB PO SCH (09:00)
[2018-08-20] MEDS: medroxyPROGESTERone Acetate 5 MG TAB PO SCH (10:38)
--- NOTE | 2018-08-24 20:48 | EKG ---
Test Reason : ANEMIA Blood Pressure : / mmHG Vent. Rate : 063 BPM Atrial Rate : 063 BPM P-R Int : 178 ms QRS Dur : 076 ms QT Int : 432 ms P-R-T Axes : 019 026 037 degrees QTc Int : 442 ms Normal sinus rhythm Normal ECG Confirmed by RAY FELTON M.D. ([id number]), technical writer and editor SHAUN HAMEED ([id number]) on 08/24/2018 8:47:57 PM Referred By: ROYAL Confirmed By:RAY FELTON M.D.
== END 2018-08-20 11:24 | disposition home or self-care (01) ==
LOC: ERS 11:01 → 2SW 15:05
PROVIDERS: ADMIT Specialist; ATTEND Specialist
PROC: 0UDB7ZX Extraction of Endometrium, Via Natural or Artificial Opening, Diagnostic (ICD-10-PCS; principal; 2018-08-20)
DX: N92.0 Excessive and frequent menstruation with regular cycle (principal); D50.0 Iron deficiency anemia secondary to blood loss (chronic); R10.9 Unspecified abdominal pain; N88.8 Other specified noninflammatory disorders of cervix uteri; E78.5 Hyperlipidemia, unspecified; I10 Essential (primary) hypertension; K21.9 Gastro-esophageal reflux disease without esophagitis; F31.9 Bipolar disorder, unspecified; F41.9 Anxiety disorder, unspecified; Z87.891 Personal history of nicotine dependence; Z91.041 Radiographic dye allergy status; Z88.5 Allergy status to narcotic agent; Z79.899 Other long term (current) drug therapy
CPT/HCPCS: 36415; 36416; 36430; 74176; 76856; 80053; 80061; 81003; 82274; 82607; 82746; 83036; 83540; 83550; 83690; 84443; 85025; 85046; 85060; 85610; 85730; 86850; 86900; 86901; 88305; 93005; 96372; G0378; J1885; P9016

== ENCOUNTER 2018-10-30 08:46 | Outpatient (CLI) | payer MEDICAID ==
--- NOTE | 2018-10-30 10:23 | MMO ---
Right Breast MAMMO Unilat Diag DDI RT. CLINICAL HISTORY: Patient is 52 years old and is seen for diagnostic exam. The patient has the following family history of breast cancer: maternal aunt, at age 50 and maternal aunt, at age 50. The patient has no personal history of cancer. The patient has a history of left Excisional Biopsy - benign - Pt unsure of age or year. VIEWS: The views performed were: . FILMS COMPARED: The present examination has been compared to prior imaging studies performed at [facility] on 10/09/2018, and at [facility] on 06/30/2016, 07/12/2016 and 10/30/2018. MAMMOGRAM FINDINGS: There are scattered fibroglandular densities. There is a biopsy clip seen in the right breast. IMPRESSION: BIOPSY CLIP IN THE RIGHT BREAST IS CONFIRMED UTILIZING POST PROCEDURE MAMMOGRAM. THE RESULTS OF THIS EXAM WERE SENT TO THE PATIENT. MAMMOGRAPHY NOTE: 1. A negative mammogram report should not delay a biopsy if a dominant of clinically suspicious mass is present. 2. Approximately 10% to 15% of breast cancers are not detected by mammography. 3. Adenosis and dense breasts may obscure an underlying neoplasm. Reported by: ALEJANDRO GARCÍA MD Electonically Signed: [id number]
--- NOTE | 2018-10-30 10:55 | ULT ---
LIMITED RIGHT BREAST ULTRASOUND: DATE: 10/30/2018. PROVIDED CLINICAL HISTORY: Abnormal mammogram. FINDINGS: Limited sonographic interrogation of the right breast was performed in the region of mammographic con cern. There is a hypoechoic mass measuring about 1.4 cm in greatest dimension, demonstrating microlo bulated margins. There is no posterior acoustic enhancement foreshadowing. IMPRESSION: BIRADS category 4 - suspicious abnormality. Ultrasound-guided breast biopsy is recommended. Results and recommendations discussed with the patient and questions answered. POS: OFF
--- NOTE | 2018-10-30 12:13 | ULT ---
ULTRASOUND GUIDED RIGHT BREAST BIOPSY: Date: 10/30/18 PROVIDED CLINICAL HISTORY: Right breast mass. FINDINGS: Informed consent was obtained from the patient. The 9 o'clock right breast mass was identified sonogr aphically and the area overlying this region was prepped and draped in the usual sterile manner. The soft tissues were infiltrated with 1% buffered lidocaine. Under continuous sonographic guidance, a 14 gauge biopsy device was advanced adjacent to the lesion and four core samples were obtained. Subsequ ently, under continuous ultrasound guidance, a biopsy clip deployment device was advanced adjacent to the lesion and biopsy clip deployed. [place] were removed and hemostasis achieved. No immediate comp lications. Post biopsy mammograms demonstrated clip deployment slightly posterior to the mass. IMPRESSION: Technically successful ultrasound guided right breast biopsy. Please correlate with histology results to follow. POS: OFF
== END 2018-10-30 08:47 | disposition home or self-care (01) ==
LOC: BICMAMMO 08:46
PROVIDERS: ATTEND Obstetrics & Gynecology
DX: N64.89 Other specified disorders of breast (principal)
CPT/HCPCS: 19083; 88305; 88341; 88342

== ENCOUNTER 2018-11-04 08:06 | Outpatient (CLI) | payer MEDICAID ==
[2018-11-04 16:13] LABS: Mean Corpuscular Hemoglobin 20.5 pg (27.0-31.0); Mean Corpuscular Volume 70.8 fL (78.0-98.0); Mean Platelet Volume 11.7 fL (7.4-10.4); Platelet Count 411 thou/uL (130-400); RBC Distribution Width 18.5 % (11.5-14.5); Red Blood Cell (RBC) Count 3.88 mill/uL (4.20-5.40)
[2018-11-04 16:16] LABS: BHCG - Serum Negative (NEGATIVE); Pregs Control Background? CLEAR/WHITE (CLR/WHITE); Pregs Control Bar Appear? YES (CONTROL BAR)
== END 2018-11-04 08:07 | disposition home or self-care (01) ==
LOC: LABBT 08:06
PROVIDERS: ATTEND Obstetrics & Gynecology
DX: Z01.812 Encounter for preprocedural laboratory examination (principal)
CPT/HCPCS: 84703; 85027; 86850; 86900; 86901

== ENCOUNTER 2018-11-05 05:48 | Day surgery (SDC) | payer MEDICAID ==
[2018-11-04 14:48] VITALS: BMI 42.6
--- NOTE | 2018-11-04 23:46 | HP ---
DATE OF PLANNED PROCEDURE: 11/05/2018 PREOPERATIVE DIAGNOSES: Menorrhagia, anemia, history of multiple blood transfusions. PROCEDURE PLANNED: Robotic-assisted total laparoscopic hysterectomy with bilateral salpingectomy. HISTORY OF PRESENT ILLNESS: Ms. Teressa Martinez is a 52-year-old G2, P2 with a history of irregular and heavy menstrual cycles. She has a long history of passing clots, multiple blood transfusions and had one most recently in August. She had an ultrasound with a thickened endometrial stripe, but no fibroids or masses. Endometrial biopsy last month with no hyperplasia or malignancy. The patient reports that she has tried oral contraceptive pills and Depo-Provera without control of her symptoms. She declines an IUD and reports she is ready for surgery. She is in fear of needing another blood transfusion. PAST MEDICAL HISTORY: Significant for hypertension, anxiety, depression, and anemia. REVIEW OF SYSTEMS: Negative except as stated above. CURRENT MEDICATIONS: 1. Clonidine 0.1 mg tablet twice a day. 2. Metoprolol 50 mg tablet twice a day. 3. Provera 10 mg tablet once a day. ALLERGIES: MORPHINE. FAMILY HISTORY: Significant for father with hypertension, diabetes, and heart disease and maternal aunt with diabetes and breast cancer. SOCIAL HISTORY: Significant for alcohol use 2 to 4 times a month. She has never been a smoker. Her marital status is and is currently looking for employment. PAST SURGICAL HISTORY: Significant for breast lumpectomy and gallbladder surgery. OBSTETRICAL HISTORY: Two vaginal deliveries. GYNECOLOGIC HISTORY: No history of abnormal Pap smears. No STD or PID. PHYSICAL EXAMINATION: VITAL SIGNS: Height 5 feet 2 inches, weight 234 pounds, BMI 42.8, pulse 66, blood pressure 130/74. CONSTITUTIONAL: No acute distress. Alert and oriented. HEENT: Grossly normal. CHEST: Lungs, nonlabored breathing. ABDOMEN: Obese. No tenderness. No guarding. No rebound. No masses. No distention. FEMALE GENITOURINARY: External female genitalia within normal limits. Normal vaginal mucosa. No cervical lesions or discharge. Uterus is nontender. Adnexa are nontender. No masses appreciated. SKIN: No rashes noted. MENTAL STATUS: Appropriate affect and mood. ASSESSMENT AND PLAN: Teressa Martinez is a 52-year-old with menorrhagia, failed medical management, history of multiple blood transfusions, ready for definitive surgical management. She is scheduled for robotic-assisted total laparoscopic hysterectomy with bilateral salpingectomy. There is no indication to remove the ovaries at this time and she wishes to keep them if they appear normal during the surgery. Since her original visit with me in September, she has had diagnostic breast imaging and a breast biopsy that is negative, but recommends further excision. She will be referred to General Surgery for this and does not want to cancel her hysterectomy for scheduling of a co-procedure. The patient understands risks and benefits of surgery. She understands the risks are to include, but not limited to, bleeding, infection, damage to intraabdominal organs, possible need for intraoperative consult and possible inability to fully diagnose and treat all conditions at the time of surgery, possible need for future medical and/or surgical management. The patient also is aware of the risk of blood transfusion if needed during the surgery with a starting hemoglobin of 8.0. Her questions have been answered to her satisfaction. She desires to proceed with the procedure as listed above. Job ID: [id number]
[2018-11-05] MEDS ORDERED: Fentanyl 100 MCG/2 ML VIAL ONE ×2 (06:04→10:09)
[2018-11-05] MEDS ORDERED: Famotidine/PF 20 mg/2ml Vial ONE ×2 (06:16→06:17)
[2018-11-05] MEDS ORDERED: Gabapentin 300 MG CAP ONE (06:16)
[2018-11-05] MEDS ORDERED: CeleCOXIB 100 MG CAP ONE (06:17)
[2018-11-05] MEDS ORDERED: Bupivacaine HCl 0.5%/Epinephrine 1:200,000/PF 30 ml Vial ONE (06:48)
[2018-11-05] MEDS ORDERED: Midazolam HCl 2 mg/2 ml Vial ONE (07:28)
[2018-11-05] MEDS ORDERED: Promethazine HCl 25 MG/ML VIAL IM PRN ×2 (07:29→09:29)
[2018-11-05] MEDS ORDERED: Promethazine HCl 25 MG/ML VIAL SLOW IVP PRN (07:29)
[2018-11-05] MEDS ORDERED: Ondansetron HCl/PF 4 MG/2 ML Vial IVP PRN (07:29)
[2018-11-05] MEDS ORDERED: Ropivacaine 0.2% 550 ML 750 ML NERVE BLCK SCH ×2 (07:45→08:00)
[2018-11-05] MEDS ORDERED: Zolpidem Tartrate 5 MG TAB PO PRN (09:29)
[2018-11-05] MEDS ORDERED: HYDROcodone/Acetaminophen 5/325 mg Tablet PO PRN (09:29)
[2018-11-05] MEDS ORDERED: Ondansetron PF 4 MG/2 ML Vial IVP PRN (09:29)
[2018-11-05] MEDS ORDERED: diphenhydrAMINE 25 MG CAP PO PRN (09:29)
[2018-11-05] MEDS ORDERED: Bisacodyl 10 MG SUPP PR PRN (09:29)
[2018-11-05] MEDS ORDERED: Simethicone Chewable 80 MG TAB PO PRN (09:29)
[2018-11-05] MEDS: Sodium Chloride 0.9% 1,000 ML IV SCH ×3 (11:42→23:55)
[2018-11-05] MEDS: Ketorolac Tromethamine 30 MG/ML VIAL IVP SCH ×3 (12:12→23:53)
[2018-11-05] MEDS: HYDROcodone/Acetaminophen 5/325 mg Tablet PO PRN (14:47)
--- NOTE | 2018-11-05 14:54 | OP ---
DATE OF PROCEDURE: 11/05/2018 PREOPERATIVE DIAGNOSES: 1. Menorrhagia. 2. Anemia. 3. History of multiple blood transfusions. POSTOPERATIVE DIAGNOSES: 1. Menorrhagia. 2. Anemia. 3. History of multiple blood transfusions. PROCEDURES PERFORMED: Robotic-assisted total laparoscopic hysterectomy with bilateral salpingectomy. KILN FURNITURE CASTER: Maren Mejia PA-C. COMPLICATIONS: None. ESTIMATED BLOOD LOSS: 25 mL. ANESTHESIA: GETA. OPERATIVE FINDINGS: 1. Enlarged uterus without any fibroids or masses noted with appearance suspicious for adenomyosis. 2. Normal-appearing fallopian tubes bilaterally. 3. Normal-appearing ovaries bilaterally. 4. Normal-appearing liver edge. 5. Minimal intraabdominal adhesions noted. 6. Central obesity. DESCRIPTION OF PROCEDURE: The patient was taken back to the OR with IV fluids running. When she was in the OR, she was placed in dorsal supine position and anesthesia was obtained. Once the patient was asleep, she was placed in low dorsal lithotomy position and the abdomen and vagina were prepped and draped in normal fashion for gynecologic laparoscopy. Surgeons were gowned and gloved. A Osborne catheter was placed into the bladder and the bladder drained approximately 75 mL of concentrated urine. A Chandler syringe was placed at the tip of the Osborne catheter for bladder manipulation if needed during the case. An operative speculum was placed into the vagina and the cervix was easily visualized and grasped with a single-tooth tenaculum. A Ahometo manipulator was assembled after the uterus was sounded. It was assembled with an 8 cm tip and a 4 cm colpotomy ring. It was placed into the uterus and vagina in normal fashion. After the ADDISON Rick manipulator was placed, the surgeon's gloves were changed. Attention was turned to the laparoscopic portion of the procedure. Beginning at the supraumbilical fold, local anesthesia was injected underneath the skin. A 12-mm skin incision was made with a scalpel. The skin incision was carried down through the subcutaneous tissue and bluntly dissected with hemostats. A Veress needle was placed through this incision and the abdomen was insufflated without difficulty. After the abdomen was insufflated, the Veress needle was removed. A 12-mm trocar was placed into the distended abdomen. The laparoscope was then placed through this port with the above findings noted. Next, under direct visualization, the right and left lower quadrant 8-mm ports and the right upper quadrant 11-mm port were placed using similar technique and without difficulty. The patient was placed in Trendelenburg position prior to insertion of the remaining trocars. The robot was then docked to the patient's bedside. The robotic instruments were then placed under direct visualization using monopolar scissors and a bipolar fenestrated grasper. The procedure began on the patient's left side, where the left fallopian tube identified, grasped, and elevated away from the pelvic sidewall. The left fallopian tube was completely transected from the ovary and from the uterus and removed as one intact specimen. Next, the utero-ovarian ligament was cauterized with bipolar cautery and transected. The left ovary was freed from the uterus and fell away to the left pelvic sidewall. The round ligament on the patient's left side was then cauterized and transected. It was then divided into anterior and posterior leaves and dissected down towards the level of the uterine artery. The ureter was identified and noted to be running away from the planned dissection area. The left uterine artery was skeletonized and cauterized. The bladder was still backfilled with normal saline and the bladder was noted to be well away from the planned bladder flap dissection. The anterior leaf of the broad ligament was further dissected down towards the level of the cervix. The bladder was then drained. The bladder flap was created and the bladder was dissected away in layer by mosaic layer the cervix. The uterine artery on the patient's left side was then transected with hemostasis noted. Attention was then turned to the contralateral side, where the right fallopian tube was grasped, elevated, and dissected away from the pelvic anatomy. It was removed for pathologic review. The utero-ovarian ligament on the patient's right side was cauterized and transected, allowing the right ovary to fall away to the pelvic sidewall. The ureter was noted to be running well away from the planned dissection areas. The round ligament on the patient's right side was cauterized, transected, and divided and the anterior and posterior leaf was then dissected down towards the level of the uterine artery, which was then skeletonized. The bladder flap was completed from the patient's right side and the bladder was completely dissected away from the planned colpotomy site. The uterine artery on the patient's right side was cauterized and transected with good hemostasis noted. The colpotomy was then performed using monopolar scissors and completed circumferentially. After the colpotomy was completed, the uterus and cervix specimens were retracted into the vagina and remained there to sustain pneumoperitoneum during the completion of the case. The vaginal cuff was then irrigated and any small areas of bleeding were controlled with bipolar cautery. The vaginal cuff was then reapproximated with Stratafix suture in a running fashion. It was closed in 2 layers. After the vaginal cuff was completely closed, the vagina was inspected from the surgical services tech below with no bleeding noted. The vaginal cuff and surgical pedicles were then irrigated and suctioned dry. The pressure was dropped down to 4 mmHg with no areas of bleeding noted. An ON-Q catheter tip was placed through the skin under direct visualization and then ON-Q catheter was threaded down towards the pelvis. It was primed with local and a sterile dressing was applied to the skin to keep it in place. All instruments were removed. Counts were correct. After the trocars were removed and the gas was released from the abdomen, the supraumbilical port site was closed at the fascia with Vicryl suture. All 4 skin incisions were closed with Monocryl suture and dressed with Dermabond dressing. The patient was cleaned, dried, taken out of lithotomy position, extubated, and transferred to the recovery room in good condition. Job ID: [id number]
[2018-11-05] MEDS ORDERED: Metoprolol Tartrate 25 MG TAB PO SCH (21:00)
[2018-11-05] MEDS ORDERED: cloNIDine 0.1 MG TAB PO SCH (21:00)
[2018-11-05] MEDS: Metoprolol Tartrate 50 MG TAB PO SCH (21:09)
[2018-11-05] MEDS: cloNIDine 0.1 MG TAB PO SCH (21:09)
[2018-11-06] MEDS: HYDROcodone/Acetaminophen 5/325 mg Tablet PO PRN (05:27)
[2018-11-06 06:24] LABS: Hemoglobin 6.7 g/dL (12.0-16.0); Mean Corpuscular HGB CONC 28.5 g/dL (32.0-36.0); Mean Corpuscular Hemoglobin 20.5 pg (27.0-31.0); Mean Corpuscular Volume 71.7 fL (78.0-98.0); Mean Platelet Volume 11.3 fL (7.4-10.4); Platelet Count 355 thou/uL (130-400); RBC Distribution Width 17.7 % (11.5-14.5); Red Blood Cell (RBC) Count 3.27 mill/uL (4.20-5.40); White Blood Cell (WBC) Count 9.3 thou/uL (4.8-10.8)
--- NOTE | 2018-11-06 08:13 | PDOC.EVN ---
Event Note - Event Note Event Note: POD1 faraz CAMPBELL S: pain controlled w OnQ and oral meds PRN, mild discomfort, ambulating with some dizziness-has had that symptom a few days. No bleeding on peripad, voiding well. O: VS stable, pulse 53, mild elevation in BP Gen: NAD A and O Lungs: nonlabored breathing Abd: NTTP, nondistended Ext: no cords Hgb: 6.7 A/P: POD1, doing well, symptomatic @ 6.7 HGB (anticipated drop after surgery and hydration), will transfuse one unit PRBC and likely DC home today.
[2018-11-06] MEDS: cloNIDine 0.1 MG TAB PO SCH (09:50)
[2018-11-06] MEDS: Metoprolol Tartrate 50 MG TAB PO SCH (09:51)
[2018-11-06] MEDS ORDERED: Ibuprofen 800 MG TAB PO SCH (14:00)
[2018-11-06 15:17] VITALS: BP 142/67; TEMP 99
[2018-11-06] MEDS: Ibuprofen 600 MG TAB PO SCH ×2 (15:37→15:39)
[2018-11-06] MEDS: Sodium Chloride 0.9% 1,000 ML IV SCH (16:30)
[2018-11-06 17:31] LABS: Hemoglobin 7.8 g/dL (12.0-16.0); Mean Corpuscular HGB CONC 29.4 g/dL (32.0-36.0); Mean Corpuscular Hemoglobin 21.5 pg (27.0-31.0); Mean Corpuscular Volume 73.1 fL (78.0-98.0); Mean Platelet Volume 11.4 fL (7.4-10.4); Platelet Count 340 thou/uL (130-400); RBC Distribution Width 20.9 % (11.5-14.5); White Blood Cell (WBC) Count 7.9 thou/uL (4.8-10.8)
== END 2018-11-06 19:30 | disposition home or self-care (01) ==
LOC: SDC 05:48 → 3SW 09:28 → SDC 11-06 19:30
PROVIDERS: ATTEND Obstetrics & Gynecology
PROC: 0UT74ZZ Resection of Bilateral Fallopian Tubes, Percutaneous Endoscopic Approach (ICD-10-PCS; principal; 2018-11-05)
PROC: 0UT94ZZ Resection of Uterus, Percutaneous Endoscopic Approach (ICD-10-PCS; principal; 2018-11-05)
DX: N92.0 Excessive and frequent menstruation with regular cycle (principal); D62 Acute posthemorrhagic anemia; N85.2 Hypertrophy of uterus; N72 Inflammatory disease of cervix uteri; D25.9 Leiomyoma of uterus, unspecified; I10 Essential (primary) hypertension; F41.9 Anxiety disorder, unspecified; F32.9 Major depressive disorder, single episode, unspecified; Z79.899 Other long term (current) drug therapy; Z88.5 Allergy status to narcotic agent; Z91.041 Radiographic dye allergy status
CPT/HCPCS: 36415; 36430; 85027; 86850; 86900; 86901; 88307; A4306; J0131; J0670; J0690; J1885; J2250; J2405; J2795; J3010; P9016; S0028

== ENCOUNTER 2018-11-23 17:22 | Emergency (ER) | payer MEDICAID ==
[2018-11-23 17:55] LABS: #Eosinphils 0.2 thou/uL (0.0-0.7); #Lymphocytes 0.8 thou/uL (1.20-3.40); #Monocytes 0.4 thou/uL (0.11-0.59); #Neutrophils 7.3 thou/uL (1.40-6.50); %Basophils 0.1 % (0.0-1.0); %Eosinophils 2.1 % (0.0-10.0); %Monocytes 4.1 % (0.0-10.0); %Neutrophils 84.8 % (42.0-75.0); Hemoglobin 9.7 g/dL (12.0-16.0); Mean Corpuscular HGB CONC 30.1 g/dL (32.0-36.0); Mean Corpuscular Hemoglobin 21.2 pg (27.0-31.0); Mean Corpuscular Volume 70.4 fL (78.0-98.0); Mean Platelet Volume 11.1 fL (7.4-10.4); Platelet Count 419 thou/uL (130-400); RBC Distribution Width 19.3 % (11.5-14.5); Red Blood Cell (RBC) Count 4.59 mill/uL (4.20-5.40); White Blood Cell (WBC) Count 8.6 thou/uL (4.8-10.8)
[2018-11-23 18:14] LABS: ALT (SGPT) Less than 7 U/L (8-55); AST (SGOT) 8 U/L (5-34); Albumin 3.9 g/dL (3.5-5.0); Alkaline Phosphatase 74 U/L (40-110); Anion Gap 14 mmol/L (10-20); BUN (Urea Nitrogen) 5 mg/dL (9.8-20.1); Bilirubin, Total 0.5 mg/dL (0.2-1.2); Calc. Creatinine Clearance 0 mL/min (70-130); Calcium 9.2 mg/dL (7.8-10.44); Carbon Dioxide 23 mmol/L (22-29); Chloride 104 mmol/L (98-107); Estimated GFR-MDRD Greater than 90; Globulin 3.7 g/dL (2.4-3.5); Glucose 94 mg/dL (70-105); Lipase 35 U/L (8-78); Potassium 3.4 mmol/L (3.5-5.1); Protein, Total 7.6 g/dL (6.0-8.3); Sodium 138 mmol/L (136-145)
== END 2018-11-23 19:19 | disposition left against medical advice (07) ==
LOC: ERS 17:22
DX: Z53.21 Procedure and treatment not carried out due to patient leaving prior to being seen by health care provider (principal)
CPT/HCPCS: 36415; 80053; 83690; 85025

== ENCOUNTER 2020-11-15 09:45 | Outpatient (CLI) | payer OTHER | END 2020-11-15 09:46 | disposition home or self-care (01) | LOC: BICMAMMO 09:45 | PROVIDERS: ATTEND Family Medicine | DX: Z12.31 Encounter for screening mammogram for malignant neoplasm of breast (principal); Z80.3 Family history of malignant neoplasm of breast; Z91.89 Other specified personal risk factors, not elsewhere classified; N63.10 Unspecified lump in the right breast, unspecified quadrant | CPT/HCPCS: 77067 ==

== ENCOUNTER 2021-02-09 10:52 | Outpatient (CLI) | payer OTHER | END 2021-02-09 10:53 | disposition home or self-care (01) | LOC: BICULT 10:52 | PROVIDERS: ATTEND Family Medicine | DX: N63.15 Unspecified lump in the right breast, overlapping quadrants (principal) ==

== ENCOUNTER 2021-03-08 09:44 | Outpatient (CLI) | payer OTHER ==
[2021-03-08 12:49] LABS: Anion Gap 13 mmol/L (10-20); BUN (Urea Nitrogen) 8 mg/dL (9.8-20.1); Calc. Creatinine Clearance 0 mL/min (70-130); Calcium 9.5 mg/dL (7.8-10.44); Carbon Dioxide 28 mmol/L (22-29); Chloride 105 mmol/L (98-107); Glucose 86 mg/dL (70-105); Potassium 4.1 mmol/L (3.5-5.1); Sodium 142 mmol/L (136-145)
[2021-03-08 13:00] LABS: #Eosinphils 0.2 10x3/uL (0.0-0.5); #Monocytes 0.4 10x3/uL (0.0-1.1); #Neutrophils 3.9 10x3/uL (1.5-8.4); %Basophils 0.5 % (0.0-2.0); %Eosinophils 2.6 % (0.0-6.0); %Lymphocytes 33.4 % (18.0-47.0); %Monocytes 5.4 % (0.0-10.0); %Neutrophils 57.9 % (40.0-75.0); Hemoglobin 13.9 g/dL (12.0-15.5); Mean Corpuscular HGB CONC 30.9 g/dL (32.0-36.0); Mean Corpuscular Hemoglobin 26.8 pg (27.0-33.0); Mean Corpuscular Volume 86.7 fl (81.6-98.3); Mean Platelet Volume 10.9 fl (7.4-10.4); Platelet Count 263 10x3/uL (150-450); RBC Distribution Width 13.8 % (11.5-14.5); Red Blood Cell (RBC) Count 5.19 10x6/uL (3.90-5.03); White Blood Cell (WBC) Count 6.6 10x3/uL (3.5-10.5)
[2021-03-08 20:06] LABS: SARS-CoV-2 PCR by NAA Not Detected (NotDetected)
== END 2021-03-08 09:45 | disposition home or self-care (01) ==
LOC: LABBT 09:44
PROVIDERS: ATTEND Surgery
DX: Z01.818 Encounter for other preprocedural examination (principal); Z20.822 Contact with and (suspected) exposure to COVID-19
CPT/HCPCS: 80048; 85025; 93005; 93010; U0003; U0005

== ENCOUNTER 2021-03-11 10:40 | Day surgery (SDC) | payer OTHER ==
[2021-03-09 09:40] VITALS: BMI 53.9
[2021-03-11] MEDS ORDERED: Lidocaine 1% MPF 2 ML VIAL ONE (12:29)
[2021-03-11] MEDS ORDERED: Acetaminophen 500 MG TAB ONE (12:41)
[2021-03-11] MEDS ORDERED: Ketorolac Tromethamine 30 MG/ML VIAL ONE (12:41)
[2021-03-11] MEDS ORDERED: Midazolam HCl 2 mg/2 ml Vial ONE (13:04)
[2021-03-11] MEDS ORDERED: Fentanyl 100 MCG/2 ML VIAL ONE (13:04)
[2021-03-11] MEDS ORDERED: Bupivacaine 0.25% HCL 30 ML VIAL ONE (13:14)
[2021-03-11] MEDS ORDERED: EPINEPHrine 1 MG/ML AMP ONE (13:15)
[2021-03-11] MEDS ORDERED: ceFAZolin 2 GM/Dextrose 50 ML IVPB ONE (13:26)
[2021-03-11] MEDS ORDERED: PROPOFOL 200 MG/20 ML VIAL ONE (13:36)
[2021-03-11] MEDS ORDERED: Succinylcholine 200 MG/10 ml SYRINGE FS ONE (13:36)
[2021-03-11] MEDS ORDERED: Dexamethasone 20 MG/5 ML VIAL ONE (13:36)
[2021-03-11] MEDS ORDERED: Lidocaine 1% PF 5 ML VIAL ONE (13:36)
[2021-03-11] MEDS ORDERED: Ondansetron PF 4 MG/2 ML Vial ONE (13:36)
== END 2021-03-11 17:00 | disposition home or self-care (01) ==
LOC: SDC 10:40
PROVIDERS: ATTEND Surgery
PROC: 0HBT0ZZ Excision of Right Breast, Open Approach (ICD-10-PCS; principal; 2021-03-11)
DX: D24.1 Benign neoplasm of right breast (principal); N60.91 Unspecified benign mammary dysplasia of right breast; N60.21 Fibroadenosis of right breast; N60.81 Other benign mammary dysplasias of right breast; I10 Essential (primary) hypertension; Z79.899 Other long term (current) drug therapy; Z88.5 Allergy status to narcotic agent; Z91.041 Radiographic dye allergy status
CPT/HCPCS: 76098; 88307; 88341; 88342; J0171; J0690; J1100; J1885; J2250; J2405; J2704; J3010; S0020

== ENCOUNTER 2023-03-19 14:26 | Outpatient (CLI) | payer OTHER | END 2023-03-19 14:27 | disposition home or self-care (01) | LOC: BICMAMMO 14:26 | PROVIDERS: ATTEND Student in an Organized Health Care Education/Training Program | DX: Z12.31 Encounter for screening mammogram for malignant neoplasm of breast (principal); Z80.3 Family history of malignant neoplasm of breast; Z91.89 Other specified personal risk factors, not elsewhere classified; Z98.890 Other specified postprocedural states | CPT/HCPCS: 77067 ==